=== PATIENT | male | born 1940 | race Caucasian/White ===

== ENCOUNTER → 2017-11-14 | Outpatient (CLI) | payer OTHER ==
--- NOTE | ~2017-11-14 | 2DMMODE ---
[facility] [place] [address] 2 D/M-MODE ECHOCARDIOGRAM Name: MAE RUBIN Room #: REG [facility] [id number] Admission: 11/14/17 Attend Phys: Julian Sevilla, Discharge: Date of : 44 Date of Service: 11/14/17 1218 Report #: [id number] THIS REPORT FOR: //name// APPROVED REPORT Study performed: 11/14/2017 11:14:29 EXAM: Comprehensive 2D, Doppler, and color-flow Echocardiogram Patient Location: Out-Patient Status: routine BSA: 2.16 HR: 52 bpm BP: 149/76 mmHg Other Information Study Quality: Adequate Indications Dyspnea CAD Echo Enhancing Agent Indication: Endocardial border delineation Agent(s) / Amount(s) Used: Optison 3 cc 2D Dimensions IVC: 16.00 mm Volumes Left Atrial Volume (Systole) Single Plane 4CH: 97.93 mL Single Plane 2CH: 66.84 mL LA ESV Index: 41.00 mL/m2 Aortic Valve AoV Peak Aidan.: 1.83 m/s AO Peak Gr.: 13.45 mmHg LVOT Max P.47 mmHg LVOT Max V: 1.37 m/s Mitral Valve E/A Ratio: 0.6 MV Decel. Time: 378.87 ms MV E Max Aidan.: 0.65 m/s MV A Aidan.: 1.02 m/s MV PHT: 109.87 ms [facility] [address] [place] [address] 2 D/M-MODE ECHOCARDIOGRAM Name: MAE RUBIN EDNA Room #: REG [facility] [id number] Admission: 11/14/17 Attend Phys: Julian Sevilla, Discharge: Date of : 44 Date of Service: 11/14/17 1218 Report #: [id number] IVRT: 216.84 ms Pulmonary Valve PV Peak Aidan.: 1.17 m/s PV Peak Gr.: 5.44 mmHg Pulmonary Vein P Vein S: 0.62 m/s P Vein A: 0.31 m/s P Vein D: 0.31 m/s P Vein A Dur.: 147.6 msec P Vein S/D Ratio: 2.00 Tricuspid Valve TR Peak Aidan.: 3.13 m/s TR Peak Gr.: 39.17 mmHg PA Pressure: 44.00 mmHg Left Ventricle The left ventricle is normal size. There is normal LV segmental wall motion. There is normal left ventricular wall thickness. The left ventricular systolic function is normal. The left ventricular ejection fraction is within the normal range. LVEF is 55-60%. Grade I - abnormal relaxation pattern. Right Ventricle The right ventricle is normal size. The right ventricular systolic function is normal. Atria Left atrium is dilated. Right atrium is dilated. Aortic Valve The aortic valve is normal in structure. No aortic regurgitation is present. There is no aortic valvular stenosis. Mitral Valve The mitral valve is normal in structure. Mild mitral regurgitation. No evidence of mitral valve stenosis. Tricuspid Valve The tricuspid valve is normal in structure. There is mild tricuspid regurgitation. Estimated PAP 44 mmHg. There is moderate pulmonary hypertension. Pulmonic Valve The pulmonary valve is normal in structure. There is no pulmonic valvular regurgitation. [facility] [place] [address] [place] [address] 2 D/M-MODE ECHOCARDIOGRAM Name: MAE RUBIN [place] Room #: REG Jose#: [id number] Admission: 11/14/17 Attend Phys: Julian Sevilla, Discharge: Date of : 44 Date of Service: 11/14/17 1218 Report #: [id number] Great Vessels The aortic root is normal in size. IVC is normal in size and collapses >50% with inspiration. Pericardium There is no pericardial effusion. <Conclusion> The left ventricular systolic function is normal. There is normal LV segmental wall motion. LVEF is 55-60%. Mild diastolic dysfunction Both atria are dilated. The aortic valve is normal in structure. No aortic regurgitation or stenosis The mitral valve is normal in structure. Mild mitral regurgitation. There is mild tricuspid regurgitation. Estimated pulmonary artery pressure of 44 mmHg. There is no pericardial effusion. <ELECTRONICALLY SIGNED> By: Julian Sevilla MD, [facility] 11/14/17 1218 1218 1218 Julian Sevilla MD, [facility] /INF
== END ==
LOC: EDSTATUS 06:39 → NUC 06:50
DX: I08.1 Rheumatic disorders of both mitral and tricuspid valves (principal); I10 Essential (primary) hypertension; E11.9 Type 2 diabetes mellitus without complications; E78.5 Hyperlipidemia, unspecified; I27.20 Pulmonary hypertension, unspecified; Z87.891 Personal history of nicotine dependence

== ENCOUNTER 2017-11-27 06:33 | Observation (INO) | payer OTHER ==
[~2017-11-27] VITALS: Ht 175.3 cm; Wt 108.9 kg
--- NOTE | ~2017-11-27 | EKG ---
[place] [address] [facility] [place] [address] ELECTROCARDIOGRAM REPORT Name: SCOTTIEMAE EDNA Room #: 201-P [facility]#: [id number] Admission: 11/27/17 Attend Phys: Julian Sevilla MD, Discharge: Date of : 44 Report #: [id number] THIS REPORT FOR: //name// [facility] Test Date: 2017-11-27 Test Time: 07:09:52 Pat Name: MAE RUBIN Department: Room: Gender: M Administrative Tech: : 1940 Requested By: Julian Sevilla Order Number: [id number] MD: Julian Sevilla Measurements Intervals [place] Rate: 57 P: -6 UT: 139 QRS: -4 QRSD: 156 T: 125 QT: 487 QTc: 475 Interpretive Statements Sinus rhythm Left bundle branch block Baseline wander in lead(s) V4 No previous ECG available for comparison Electronically Signed On 11-27-2017 17:09:03 CDT by Julian Sevilla [email or web address] <ELECTRONICALLY SIGNED> By: Julian Sevilla MD, [facility] 11/27/17 1709 8 8 Julian Sevilla MD, [facility] /EPI
--- NOTE | ~2017-11-27 | D ---
[facility] [place] [address] DISCHARGE SUMMARY Name: MAE RUBIN Room #: 201-P [facility] Saira Garcia#: [id number] Admission: 11/27/17 Attend Phys: Julian Sevilla MD, Discharge: 11/28/17 Date of : 44 Report #: [id number] THIS REPORT FOR: //name// CC: Tor Sevilla DISCHARGE DIAGNOSES: 1. Progressive angina. 2. Coronary artery disease with stenting of the mid LAD (2.5 x 14 mm Resolute stent), stenting of the proximal right coronary with a 2.5 x 18 mm Resolute stent. 3. Dyslipidemia. 4. Hypertension. 5. Chronic kidney disease. 6. Diabetes, insulin requiring. 7. Left bundle branch block. HISTORY OF PRESENT ILLNESS: For the complete details of the history of present illness, see dictated history and physical. HOSPITAL COURSE: The patient is a 76-year-old gentleman with longstanding diabetes with prior stenting of the mid LAD in 2016, now presents with progressive exertional chest pain, severely limiting his activity. Based on the nature of his symptoms, he is admitted for coronary angiography. HOSPITAL COURSE: The patient underwent coronary angiography. The details of this can be found under separate heading and dictation. In summary, he was found to have severe disease in the mid LAD, which was stented with a 2.5 x 14 mm Resolute medicated stent. There is severe disease in the proximal portion of a codominant right coronary, which was stented with a 2.5 x 18 mm Resolute medicated stent. He was treated with aspirin, Plavix, heparin and Integrilin in the periprocedural setting. Ambulating with excellent groin hemostasis at the time of discharge. DISCHARGE DIET: Low fat, low cholesterol diabetic diet. DISCHARGE MEDICATIONS: Aspirin 81 mg daily, Plavix 75 mg daily, finasteride 5 mg daily, Trelegy Ellipta 1 inhalation daily, Lasix 20 mg twice daily, insulin 40 units subQ 3 times a day, Lantus 45 units at night, isosorbide mononitrate 30 mg daily, levothyroxine 100 mcg daily, Prinzide 20/25 one tablet twice daily, metoprolol 100 mg twice daily, Protonix 40 mg daily, Flomax 0.4 mg daily, atorvastatin 40 mg daily. Medicines were reconciled. DISCHARGE FOLLOWUP: With Tor Harley in 2-4 weeks, followup with myself in [address] [place] [address] DISCHARGE SUMMARY Name: MAE RUBIN Room #: 201-P [facility] Saira Garcia#: [id number] Admission: 11/27/17 Attend Phys: Julian Sevilla MD, Discharge: 11/28/17 Date of : 44 Report #: [id number]. Followup arrangements were made for outpatient cardiac rehabilitation at [facility]. DISCHARGE ACTIVITIES: As instructed post-catheterization and stenting. DISCHARGE CONDITION: Stable and improved. <ELECTRONICALLY SIGNED> By: Julian Sevilla MD, [facility] 11/30/17 1719 1609 1710 Julian Sevilla MD, [facility] /nt
--- NOTE | ~2017-11-27 | EKG ---
[place] [address] [address] [place] [address] ELECTROCARDIOGRAM REPORT Name: MAE RUBIN Room #: 201-[facility]..#: [id number] Admission: 11/27/17 Attend Phys: Julian Sevilla MD, Discharge: 11/28/17 Date of : 44 Report #: [id number] THIS REPORT FOR: //name// [facility] Test Date: 2017-11-28 Test Time: 06:16:10 Pat Name: MAE RUBIN Department: Room: 201 Gender: M Poured Wall Foreman: : 1940 Requested By: Julian Sevilla Order Number: [id number] MD: Tahir Gonzalez Measurements Intervals [place] Rate: 71 P: 18 NC: 130 QRS: 2 QRSD: 156 T: 139 QT: 456 QTc: 496 Interpretive Statements Sinus rhythm Left bundle branch block Baseline wander in lead(s) V3 No significant change Electronically Signed On 11-28-2017 17:20:36 CDT by Tahir Gonzalez [email or web address] <ELECTRONICALLY SIGNED> By: Tahir Gonzalez MD 11/28/17 1720 0616 5 MD HÉCTOR Killian
--- NOTE | ~2017-11-27 | EKG ---
[place] [address] [facility] [place] [address] ELECTROCARDIOGRAM REPORT Name: MAE RUBIN Room #: 201-P [facility]#: [id number] Admission: 11/27/17 Attend Phys: Julian Sevilla MD, Discharge: Date of : 44 Report #: [id number] THIS REPORT FOR: //name// [facility] Test Date: 2017-11-27 Test Time: 10:30:48 Pat Name: MAE RUBIN Department: Room: Gender: M Incoming Freight Clerk: : 1940 Requested By: Julian Sevilla Order Number: [id number] MD: Julian Sevilla Measurements Intervals [place] Rate: 53 P: 63 KS: 192 QRS: 6 QRSD: 158 T: 148 QT: 505 QTc: 475 Interpretive Statements Sinus rhythm Left bundle branch block No previous ECG available for comparison Electronically Signed On 11-27-2017 17:12:57 CDT by Julian Sevilla [email or web address] <ELECTRONICALLY SIGNED> By: Julian Sevilla MD, [facility] 11/27/17 1712 1030 1030 Julian Sevilla MD, [facility] /EPI
--- NOTE | ~2017-11-27 | CATHLAB ---
[facility] [address] [place] [address] INVASIVE PROCEDURE REPORT Name: MAE RUBIN EDNA Room #: 201-P [facility] IN ..#: [id number] Admission: 11/27/17 Attend Phys: Julian Sevilla, Discharge: Date of : 44 Date of Service: 11/27/17 1324 Report #: [id number] THIS REPORT FOR: //name// APPROVED REPORT Study performed: 11/27/2017 08:50:07 Patient Details Patient Status: Out-Patient Room #: The patient is a 76 year-old male Event Personnel Julian Sevilla Ctc Operator, Henry Chen RN, Bernadette Vernon Sandifer, David Monitor Procedures Performed Coronary Angiography Only [id number] CORANG JOHNATHAN Place w/wo Plasty Single LAD [id number] JOHNATHAN Place w/wo Plasty Single RCA [id number] Indication Chest pain Procedure Narrative The Right Groin^ was infiltrated with 1% Lidocaine subcutaneous anesthesia. A PINNACLE 6FR Sheath #[id number] sheath was inserted into the RFA^. Coronary angiography was performed using coronary diagnostic catheters. The right coronary system was accessed and visualized with a JR4 catheter. The left coronary system was accessed and visualized with a JL4 catheter. Closure device was deployed with a 6 Fr MYNXGRIP 6/7F #[id number]. The patient tolerated the procedure well and there were no complications associated with the procedure. Intraoperative Conscious Sedation Sedation start time: 9.13 Case end Time: 10.07 Fentanyl 50 mcg Versed 1.5 mg Fluoro Time: 11.23 minutes Dose: DAP 98098. cGycm2 1746 mGy Contrast Type and Amount: Visipaque 230 ml Coronary Angiography The patient's coronary anatomy is co- dominant. Diagnostic Cath [facility] [address] [place] [address] INVASIVE PROCEDURE REPORT Name: MAE RUBIN EDNA Room #: 201-P [facility] IN ..#: [id number] Admission: 11/27/17 Attend Phys: Julian Sevilla, Discharge: Date of : 44 Date of Service: 11/27/17 1324 Report #: [id number] Left Main Normal left main LAD Mild proximal LAD plaquing. The mid LAD exhibited an 85% discrete stenosis. Diagonal 1 Small first diagonal branch, mild plaquing Diagonal 2 Large second diagonal branch with 30-40% proximal plaquing Circumflex Codominant, large circumflex OM1 Small first marginal branch with mild proximal plaquing OM2 Large second marginal branch with mild proximal plaquing OM3 Distally arising third marginal branch, small in caliber, normal Right Coronary Codominant right coronary with severe 99% proximal stenosis Left Ventriculography Left Ventriculography was not performed. Hemodynamics The aortic pressure is 149/72 mmHg with a mean of 96 mmHg. PCI Technique Lesion Anticoagulation was achieved with Heparin, Integrilin. Patient was preloaded with Plavix. Percutaneous coronary intervention was performed on the mid left anterior descending artery segment. The lesion stenosis prior to intervention was 85% with TRAN 3 flow. A LAUNCHER 6FR EBU 3.5 #[id number] Guide Catheter was used to engage the ostium. A Luge Wire .014 x 182CM #[id number] Interventional Guidewire was used to cross the lesion. BALLOON DILATION A Balloon catheter Euphora RX 2.5 x 10 #[id number] was inserted and inflated up to 10.00atm for 28seconds. Repeat angiography revealed the following post-dilatation results: moderate residual stenosis. STENT DEPLOYMENT A drug-eluting stent RESOLUTE RX 2.5 X 14 #[id number] was inserted and inflated up to 12.00atm for 20seconds. Repeat angiography revealed the following post-stent deployment results: 0% residual stenosis. POST STENT DEPLOYMENT BALLOON DILATION A Balloon catheter TREK NC RX 2.5 X 12 #[id number] was inserted and inflated up to 20.00atm for 27seconds. [address] [address] INVASIVE PROCEDURE REPORT Name: CARMENNOYMAE EDNA Room #: 201-P [facility] IN ..#: [id number] Admission: 11/27/17 Attend Phys: Julian Sevilla, Discharge: Date of : 44 Date of Service: 11/27/17 1324 Report #: [id number] Final angiography reveals 0 % stenosis with TRAN 3 flow. PCI Technique Lesion 2 Percutaneous Coronary Intervention was performed on the proximal right coronary artery. Percutaneous coronary intervention was performed on the proximal right coronary artery. The lesion stenosis prior to intervention was 99% with TRAN 3 flow. A LAUNCHER 6FR JR 4 SH #[id number] Guide Catheter was used to engage the ostium. A Luge Wire .014 x 182CM #[id number] Interventional Guidewire was used to cross the lesion. Balloon Dilation A Balloon catheter Euphora RX 2.5 x 10 #[id number] was inserted and inflated up to 7.00atm for 125seconds. Repeat angiography revealed the following post-dilatation results: moderate residual stenosis. Additional Inflation: 7.00atm for 11seconds. Stent Deployment A drug-eluting stent RESOLUTE RX 2.5 X 18 #[id number] was inserted and inflated up to 14.00atm for 30seconds. Post Stent Deployment Balloon Dilation A Balloon catheter TREK NC RX 2.5 X 12 #[id number] was inserted and inflated up to 18.00atm for 28seconds. Additional Inflation: 18.00atm for 24seconds. Final angiography reveals 0 % stenosis with TRAN 3 flow. Conclusion 1. Normal left main 2. Severe mid vessel LAD stenosis treated with a 2.5 x 14 mm Resolute medicated stent 3. Mild scattered plaquing in a codominant circumflex 4. Severe proximal right coronary stenosis treated with a 2.5 x 18 mm Resolute medicated stent Recommendations Daily ASA with Plavix for at least one year Cardiac Rehabilitation Referral Aggressive Medical Therapy Medications Administered EARL Inhibitor (any) Aspirin (any) [address] [address] INVASIVE PROCEDURE REPORT Name: MAE RUBIN Room #: 201-P [facility] M.R.#: [id number] Admission: 11/27/17 Attend Phys: Julian Sevilla, Discharge: Date of : 44 Date of Service: 11/27/17 1324 Report #: [id number] Beta Marga (any) Statin (any) Clopidogrel Cardiac Rehabilitation Referral <ELECTRONICALLY SIGNED> By: Julian Sevilla MD, [facility] 11/27/17 1324 132 Julian Sevilla MD, FAC /INF
[2017-11-27 07:22] VITALS: BP 134/60
[2017-11-27] MEDS ORDERED: PLAVIX 75 MG TA75 M1 PO (07:44)
[2017-11-27] MEDS ORDERED: ASPIR 8181 M1 PO (07:44)
[2017-11-27] MEDS ORDERED: FINASTERIDE5 MG PO (07:45)
[2017-11-27] MEDS ORDERED: TRELEGY ELLIPT1 EACH INH (07:46)
[2017-11-27] MEDS ORDERED: FOLIC ACID 40400 MC1 PO (07:47)
[2017-11-27] MEDS ORDERED: LASIX 20 MG TAB20 MG PO (07:48)
[2017-11-27] MEDS ORDERED: NOVOLOG100 UNIT/1 INJECTION (07:49)
[2017-11-27] MEDS ORDERED: IMDUR 30 MG TAB30 M1 PO (07:50)
[2017-11-27] MEDS ORDERED: LANTUS100 UNIT/M INJECTION (07:50)
[2017-11-27] MEDS ORDERED: SYNTHROID100 MC1 PO (07:51)
[2017-11-27] MEDS ORDERED: PRINZIDE 20-251 EACH PO (07:52)
[2017-11-27] MEDS ORDERED: MAGNESIUM PO (07:53)
[2017-11-27] MEDS ORDERED: LOPRESSOR100 M1 PO (07:56)
[2017-11-27] MEDS ORDERED: OLIVE LEAF EXT250 MG PO (07:58)
[2017-11-27] MEDS ORDERED: PROTONIX40 M1 PO (07:59)
[2017-11-27] MEDS ORDERED: OMEGA-31000 M1 PO (07:59)
[2017-11-27] MEDS ORDERED: FLOMAX0.4 MG PO (08:00)
[2017-11-27] MEDS ORDERED: VITAMIN D-32000 UNI1 PO (08:01)
[2017-11-27 11:00] VITALS: BP 129/76
[2017-11-27 11:09] VITALS: BP 129/76
[2017-11-27 15:09] VITALS: BP 142/58
[2017-11-27] MEDS ORDERED: ATORVASTATIN CA40 MG PO (16:01)
[2017-11-27 20:12] VITALS: BP 150/75
[2017-11-28 00:11] VITALS: BP 150/70
[2017-11-28 02:54] LABS: HEMATOCRIT 35.6 % (42.0-52.0); HEMOGLOBIN 12.3 gm/dL (14.0-18.0); MCH 27.6 pg (26.0-34.0); MCHC 34.4 g/dL (28.0-37.0); MCV 80.2 fL (80.0-100.0); RBC 4.44 mil/uL (4.50-6.00); RDW 16.7 % (10.5-14.5); WBC 10.3 thou/uL (4.0-11.0)
[2017-11-28 03:10] LABS: ALBUMIN 3.2 g/dL (3.4-5.0); ANION GAP 7 mmol/L (7-16); BUN 18 mg/dL (7-18); CALCIUM 8.3 mg/dL (8.5-10.1); CHLORIDE 101 mmol/L (98-107); CHOLESTEROL 145 mg/dL (<200); CO2 28 mmol/L (21-32); CREATININE 1.2 mg/dL (0.7-1.3); GLUCOSE 203 mg/dL (74-106); HDL CHOLESTEROL 26 mg/dL (>40); LDL CHOLESTEROL 74 mg/dL (<100); SGOT 22 U/L (15-37); SGPT 29 U/L (30-65); SODIUM 136 mmol/L (136-145); TC:HDL 5.6 Ratio (Not establshd); TOTAL BILIRUBIN 0.8 mg/dL (<0.1-1.0); TOTAL PROTEIN 6.9 g/dL (6.4-8.2); TRIGLYCERIDE 226 mg/dL (<150); TROPONIN-I <0.06 ng/mL (<0.06); VLDL 45 mg/dL (<40)
[2017-11-28 03:14] LABS: SERUM ASSESSMENT Clear
[2017-11-28 05:46] VITALS: BP 124/61
[2017-11-28 07:06] VITALS: BP 136/60
[2017-11-28] MEDS ORDERED: PRAVACHOL40 MG PO (08:14)
[2017-11-28] MEDS ORDERED: METFORMIN HCL500 MG PO (08:17)
[2017-11-28 09:08] VITALS: BP 136/60
== END 2017-11-28 09:24 | disposition home or self-care (01) ==
LOC: CATH 06:33 → 2N 09:13 → CATH 13:51 → ENTRNSPT 11-28 09:17 → EDTRNSPTSTS 11-28 09:19 → 2N 11-28 09:24
PROVIDERS: Internal Medicine
DX: I25.119 Atherosclerotic heart disease of native coronary artery with unspecified angina pectoris (principal); I13.0 Hypertensive heart and chronic kidney disease with heart failure and stage 1 through stage 4 chronic kidney disease, or unspecified chronic kidney disease; E11.22 Type 2 diabetes mellitus with diabetic chronic kidney disease; N18.3 Chronic kidney disease, stage 3 (moderate); I50.32 Chronic diastolic (congestive) heart failure; E78.5 Hyperlipidemia, unspecified; I44.7 Left bundle-branch block, unspecified; H40.9 Unspecified glaucoma; R06.09 Other forms of dyspnea; Z79.4 Long term (current) use of insulin; Z95.5 Presence of coronary angioplasty implant and graft; Z90.89 Acquired absence of other organs

== ENCOUNTER → 2019-11-25 | Outpatient (CLI) | payer OTHER ==
[~2019-11-25] MED LIST: ASPIR 8181 M1 PO; ATORVASTATIN CA40 MG PO; FINASTERIDE5 MG PO; FLOMAX0.4 MG PO; FOLIC ACID 40400 MC1 PO; IMDUR 30 MG TAB30 M1 PO; LANTUS100 UNIT/M INJECTION; LASIX 20 MG TAB20 MG PO; LOPRESSOR100 M1 PO; MAGNESIUM PO; METFORMIN HCL500 MG PO; NOVOLOG100 UNIT/1 INJECTION; OLIVE LEAF EXT250 MG PO; OMEGA-31000 M1 PO; PLAVIX 75 MG TA75 M1 PO; PRAVACHOL40 MG PO; PRINZIDE 20-251 EACH PO; PROTONIX40 M1 PO; SYNTHROID100 MC1 PO; TRELEGY ELLIPT1 EACH INH; VITAMIN D-32000 UNI1 PO
== END ==
LOC: SJCVCIMAG 07:44
PROVIDERS: ATTEND Internal Medicine
DX: I08.1 Rheumatic disorders of both mitral and tricuspid valves (principal); I44.7 Left bundle-branch block, unspecified; I13.0 Hypertensive heart and chronic kidney disease with heart failure and stage 1 through stage 4 chronic kidney disease, or unspecified chronic kidney disease; E11.22 Type 2 diabetes mellitus with diabetic chronic kidney disease; N18.3 Chronic kidney disease, stage 3 (moderate); I50.9 Heart failure, unspecified; I25.10 Atherosclerotic heart disease of native coronary artery without angina pectoris; E78.5 Hyperlipidemia, unspecified; D50.9 Iron deficiency anemia, unspecified; G47.33 Obstructive sleep apnea (adult) (pediatric); Z82.49 Family history of ischemic heart disease and other diseases of the circulatory system; Z79.4 Long term (current) use of insulin; Z79.84 Long term (current) use of oral hypoglycemic drugs; Z87.891 Personal history of nicotine dependence; Z79.899 Other long term (current) drug therapy

== ENCOUNTER → 2020-06-01 | Outpatient (CLI) | payer OTHER | LOC: SJCVC 09:46 | PROVIDERS: ATTEND Internal Medicine | DX: R94.31 Abnormal electrocardiogram [ECG] [EKG] (principal); I25.10 Atherosclerotic heart disease of native coronary artery without angina pectoris; D50.9 Iron deficiency anemia, unspecified; E11.22 Type 2 diabetes mellitus with diabetic chronic kidney disease; I13.0 Hypertensive heart and chronic kidney disease with heart failure and stage 1 through stage 4 chronic kidney disease, or unspecified chronic kidney disease; I50.32 Chronic diastolic (congestive) heart failure; N18.30 Chronic kidney disease, stage 3 unspecified; E78.5 Hyperlipidemia, unspecified; I44.7 Left bundle-branch block, unspecified; G47.33 Obstructive sleep apnea (adult) (pediatric); Z79.4 Long term (current) use of insulin; Z79.899 Other long term (current) drug therapy; Z87.891 Personal history of nicotine dependence; Z88.0 Allergy status to penicillin; Z88.5 Allergy status to narcotic agent ==

== ENCOUNTER → 2020-11-25 | Outpatient (CLI) | payer OTHER | LOC: SJCVC 09:59 | PROVIDERS: ATTEND Internal Medicine | DX: R94.31 Abnormal electrocardiogram [ECG] [EKG] (principal); I25.10 Atherosclerotic heart disease of native coronary artery without angina pectoris; E11.22 Type 2 diabetes mellitus with diabetic chronic kidney disease; I13.0 Hypertensive heart and chronic kidney disease with heart failure and stage 1 through stage 4 chronic kidney disease, or unspecified chronic kidney disease; I50.32 Chronic diastolic (congestive) heart failure; N18.30 Chronic kidney disease, stage 3 unspecified; E78.5 Hyperlipidemia, unspecified; I44.7 Left bundle-branch block, unspecified; D51.9 Vitamin B12 deficiency anemia, unspecified; G47.33 Obstructive sleep apnea (adult) (pediatric); Z95.5 Presence of coronary angioplasty implant and graft; Z88.0 Allergy status to penicillin; Z88.8 Allergy status to other drugs, medicaments and biological substances; Z79.4 Long term (current) use of insulin; Z79.899 Other long term (current) drug therapy; Z87.891 Personal history of nicotine dependence ==

== ENCOUNTER → 2021-05-31 | Outpatient (CLI) | payer OTHER | LOC: SJCVCIMAG 08:21 | PROVIDERS: ATTEND Internal Medicine | DX: R94.31 Abnormal electrocardiogram [ECG] [EKG] (principal); I34.0 Nonrheumatic mitral (valve) insufficiency; I44.7 Left bundle-branch block, unspecified; I25.10 Atherosclerotic heart disease of native coronary artery without angina pectoris; I13.0 Hypertensive heart and chronic kidney disease with heart failure and stage 1 through stage 4 chronic kidney disease, or unspecified chronic kidney disease; E11.22 Type 2 diabetes mellitus with diabetic chronic kidney disease; I50.32 Chronic diastolic (congestive) heart failure; N18.30 Chronic kidney disease, stage 3 unspecified; G47.33 Obstructive sleep apnea (adult) (pediatric); E78.5 Hyperlipidemia, unspecified; D50.9 Iron deficiency anemia, unspecified; Z88.0 Allergy status to penicillin; Z88.8 Allergy status to other drugs, medicaments and biological substances; Z79.4 Long term (current) use of insulin; Z79.899 Other long term (current) drug therapy; Z87.891 Personal history of nicotine dependence ==